=== PATIENT | male | born 1955 | race Hispanic/Latino ===

== ENCOUNTER 2017-06-15 13:21 | Observation (INO) | payer OTHER ==
[2017-06-15 13:47] VITALS: RESP 18
[2017-06-15] MEDS ORDERED: Sodium Chloride 0.9% 500 ML IV STA (14:27)
[2017-06-15] MEDS ORDERED: Iohexol 240 (50 ml) ONE (14:30)
--- NOTE | 2017-06-15 14:37 | ED PDOC ---
Arrival/HPI - General Chief Complaint: Abdominal Pain Time Seen by Provider: 06/15/17 14:26 Historian: Patient - History of Present Illness Narrative History of Present Illness (Text): 06/15/17 14:30 Ken Correa is a 62 year old male who presents to the emergency department complaining of abdominal pain since yesterday evening. States he had 3 episodes of non-bloody, watery diarrhea yesterday and had 1 episode of loose stool today morning. He also had subjective fever today morning. He was evaluated by PMD, , today morning and was advised to present to the emergency department for further evaluation. Denies any nausea or vomiting. Patient also had 1 isolated episode of chills 2 nights ago, which has resolved. Patient also states he experienced some lower back pain, which he states is chronic. Notes he worked-out today, mostly stretching and lifting light weights. No recent travel, No recent antibiotics. Denies any chest pain, shortness of breath, urinary symptoms, or any other complaints at this time. Time/Duration: Other (yesterday ) Symptom Onset: Gradual Severity Level: Mild Activities at Onset: Light Past Medical History - Provider Review Nursing Documentation Reviewed: Yes - Cardiac Hx Cardiac Disorders: Yes Hx Hypertension: Yes - Pulmonary Hx Respiratory Disorders: No - Neurological Hx Neurological Disorder: No - HEENT Hx HEENT Disorder: No - Renal Hx Renal Disorder: No - Endocrine/Metabolic Hx Endocrine Disorders: No - Hematological/Oncological Hx Blood Disorders: No - Integumentary Hx Dermatological Disorder: No - Musculoskeletal/Rheumatological Hx Musculoskeletal Disorders: No - Gastrointestinal Hx Gastrointestinal Disorders: No - Genitourinary/Gynecological Hx Genitourinary Disorders: No - Psychiatric Hx Psychophysiologic Disorder: No Hx Substance Use: No - Surgical History Other/Comment: right ear surgery Family/Social History - Physician Review Nursing Documentation Reviewed: Yes Family/Social History: No Known Family HX Smoking Status: Never Smoked Hx Alcohol Use: Yes Frequency of alcohol use: Socially Hx Substance Use: No Allergies/Home Meds Allergies/Adverse Reactions: Allergies No Known Allergies Allergy (Verified 06/15/17 13:47) Home Medications: Home Meds Medication Instructions Recorded Confirmed Amlodipine/Valsartan/Hcthiazid 1 PO DAILY 06/15/17 [[id number] 10-160-25 mg] Review of Systems - Review of Systems Constitutional: Fevers. absent: Fatigue Respiratory: Normal. absent: SOB, Cough, Sputum Cardiovascular: absent: Chest Pain, Palpitations Gastrointestinal: Abdominal Pain, Diarrhea. absent: Nausea, Vomiting Genitourinary Male: absent: Dysuria Neurological: absent: Headache, Dizziness Hemo/Lymphatic: absent: Easy Bleeding Psychiatric: absent: Depression Physical Exam - Physical Exam Narrative Physical Exam (Text): Head: Atraumatic. Normocephalic. Eyes: PERRL. EOMI. Conjunctivae are not pale. ENT: Mucous membranes are moist and intact. Oropharynx is clear and symmetric. Neck: Supple. Full ROM. No JVD. No lymphadenopathy. Cardiovascular: Regular rate. Regular rhythm. No murmurs, rubs, or gallops. Distal pulses are 2+ and symmetric. Pulmonary/Chest: No evidence of respiratory distress. Clear to auscultation bilaterally. No wheezing, rales or rhonchi. Abdominal: Soft and non-distended. No rebound, guarding, or rigidity. No organomegaly. Good bowel sounds. Moderate periumbilical tenderness to deep palpation. Normoactive bowel sounds. Back: No CVA tenderness. No midline tenderness. Extremities: No edema. No cyanosis. No clubbing. Full range of motion in all extremities. No calf tenderness. Skin: Skin is warm and dry. No petechiae. No purpura. Neurological: Alert, awake, and oriented. Motor and sensory exam intact. NO meningeal signs. Normal speech. Steady gait. Psychiatric: Good eye contact. Normal interaction, affect, and behavior. 06/16/17 20:13 Vital Signs Reviewed: Yes Vital Signs Temp Pulse Resp BP Pulse Ox 06/15/17 17:26 75 18 140/69 96 06/15/17 16:14 79 18 142/78 95 06/15/17 15:19 100.5 F H 87 18 146/83 95 06/15/17 13:41 102.2 F H 95 H 18 129/79 95 Temperature: Febrile Blood Pressure: Normal Pulse: Regular Respiratory Rate: Normal Appearance: Positive for: Well-Appearing, Non-Toxic, Comfortable Pain Distress: None Mental Status: Positive for: Alert and Oriented X 3 Medical Decision Making ED Course and Treatment: 06/15/17 14:38 Impression: A 62 year old male who presents to the emergency department complaining of abdominal pain and fever. Differential Diagnosis included but are not limited to: colitis vs. appendicitis vs. gastroenteritis Plan: -- CT abdomen pelvis -- EKG -- Labs, cardiac enzymes -- Pepcid -- IV Fluids -- Toradol -- Reassess and disposition Progress Notes: Patient placed in observation for serial abdominal exams and ct abdomen/pelvis. He is febrile but does not appear to be septic, is nontoxic appearing. Denies cough. Denies urinary symptoms. Denies chest pain. No rash or lesions. No joint pain or swelling. 06/16/17 20:14 - Medication Orders Current Medication Orders: Discontinued Medications Famotidine (Pepcid) 20 mg IVP STAT STA Stop: 06/15/17 14:28 Last Admin: 06/15/17 14:57 Dose: 20 mg Sodium Chloride (Sodium Chloride 0.9%) 500 mls @ 1,000 mls/hr IV .Q30M STA Stop: 06/15/17 14:56 Last Admin: 06/15/17 14:57 Dose: 1,000 mls/hr Iohexol (Omnipaque 240 (50 Ml)) Confirm Administered Dose 50 ml .ROUTE .STK-MED ONE Stop: 06/15/17 14:31 Iohexol (Omnipaque 350 100 Ml) Confirm Administered Dose 350 mg .ROUTE .STK-MED ONE Stop: 06/15/17 16:33 Ketorolac Tromethamine (Toradol) 30 mg IVP ONCE ONE Stop: 06/15/17 14:28 Last Admin: 06/15/17 14:57 Dose: 30 mg ED OBSERVATION Discharge: Yes Date of observation admission: 06/15/17 Time of observation admission: 13:40 - Observation admission statement Patient is being placed in observation because:: Abdominal pain - Goals of Observation Goals of observation are:: Pending CT abdomen pelvis, labs, reevaluation and disposition. - Progress Note Progress Note: 06/15/17 15:40 Patient is resting comfortably with no acute stress. Stable vitals. 06/15/17 17:40 Patient is resting with stable vitals. No new complaints. Pending CT read. 06/15/17 17:55 Re-exam. Pain free. No nausea or vomiting. No chest pain or sob. CT reading reviewed with patient. As no pain, nontoxic appearing, stressed need for close follow-up with last model department supervisor and PMD. Patient will be discharged with antibiotics. - Scribe Statement The provider has reviewed the documentation as recorded by the Thea Mccloud Provider Attestation: Provider Scribe Attestation: All medical record entries made by the Thea were at my direction and personally dictated by me. I have reviewed the chart and agree that the record accurately reflects my personal performance of the history, physical exam, medical decision making, and the department course for this patient. I have also personally directed, reviewed, and agree with the discharge instructions and disposition. Disposition/Present on Arrival - Present on Arrival Any Indicators Present on Arrival: No History of DVT/PE: No History of Uncontrolled Diabetes: No Urinary Catheter: No History of Decub. Ulcer: No History Surgical Site Infection Following: None - Disposition Have Diagnosis and Disposition been Completed?: Yes Diagnosis: Colitis, Abdominal pain Disposition: HOME/ ROUTINE Disposition Time: 18:00 Patient Plan: Discharge Condition: GOOD
[2017-06-15 14:58] LABS: BASO # 0.01 K/mm3 (0.0-2.0); BASO % 0.1 % (0.0-3.0); EOS % 0.1 % (1.5-5.0); GRAN # 6.59 (1.4-6.5); GRAN % 83.3 % (50.0-68.0); HEMOGLOBIN 13.1 gm/dL (14.0-18.0); LYMPH # 0.8 (1.2-3.4); LYMPH % 10.2 % (22.0-35.0); MEAN CELL VOLUME 72.9 fL (80.0-105.0); MEAN CORPUSCULAR HEMOGLOBIN 24.2 pg (25.0-35.0); MEAN CORPUSCULAR HGB CONC 33.2 g/dl (31.0-37.0); MEAN PLATELET VOLUME 10.2 fl (7.0-11.0); MONO # 0.5 (0.1-0.6); MONO % 6.3 % (1.0-6.0); PLATELET COUNT 204 10^3/uL (120.0-450.0); RBC 5.42 10^6/uL (3.5-6.1); WHITE BLOOD COUNT 7.9 10^3/ul (4.5-11.0)
[2017-06-15 15:14] LABS: ALB/GLOB RATIO 1.3 (1.1-1.8); ALBUMIN 4.1 g/dL (3.0-4.8); ALT/SGPT 33 U/L (7-56); AST/SGOT 35 U/L (15-59); BLOOD UREA NITROGEN 23 mg/dL (7-21); CALCIUM 9.4 mg/dL (8.4-10.5); GFR AFRICAN-AMERICAN > 60; GFR NON-AFRICAN AMERICAN > 60
[2017-06-15 15:20] VITALS: TEMP 100.5
[2017-06-15 15:24] LABS: INR 1.06 (0.93-1.08); PARTIAL THROMBOPLASTIN TIME 30.3 Seconds (23.7-30.8); PROTHROMBIN TIME 11.5 Seconds (9.9-11.8)
[2017-06-15 15:31] LABS: TROPONIN I 0.01 ng/mL
[2017-06-15] MEDS ORDERED: Iohexol 350 MG/100 ML VIAL ONE (16:32)
[2017-06-15 17:27] VITALS: BP 140/69; PULSE 75; O2SAT 96
--- NOTE | 2017-06-15 17:31 | CT ---
PROCEDURE: CT Abdomen and Pelvis with oral and IV contrast. HISTORY: r/o colitis COMPARISON: Pancreatic protocol CT performed 06/14/16 TECHNIQUE: Contiguous axial images of the abdomen and pelvis. Oral and IV contrast was administered. Coronal and Sagittal reformats generated and reviewed. Contrast dose: 100 mL Omnipaque 350 Radiation dose: Total exam DLP = 1035.49 mGy-cm. This CT exam was performed using one or more of the following dose reduction techniques: Automated exposure control, adjustment of the mA and/or kV according to patient size, and/or use of iterative reconstruction technique. FINDINGS: LOWER THORAX: The lung bases appear clear. Visualized portions of the heart appear within normal limits of size. There is no visible pleural effusion or pneumothorax. LIVER: Hypodensity adjacent to the falciform ligament, presumably focal fat. Hepatomegaly. GALLBLADDER AND BILE DUCTS: Unremarkable. PANCREAS: Unremarkable. No mass. No ductal dilatation. SPLEEN: Splenomegaly. ADRENALS: Unremarkable. KIDNEYS AND URETERS: The kidneys enhance symmetrically. No hydronephrosis or obstructing renal calculus. BLADDER: The urinary bladder appears unremarkable. REPRODUCTIVE: Unremarkable. APPENDIX: Unremarkable. BOWEL: The stomach is nondistended. The bowel loops appear within normal limits of caliber without evidence of intestinal obstruction. Scattered diverticulosis. Marked wall thickening of the right colon, proximal right transverse colon, and terminal ileum worrisome for colitis/ileitis. PERITONEUM: No significant free fluid. No definite free air. LYMPH NODES: No bulky lymphadenopathy identified. VASCULATURE: Atherosclerotic calcifications of the aorta. BONES: Degenerative changes of the spine. OTHER FINDINGS: None. IMPRESSION: Marked wall thickening of the right colon, proximal right transverse colon, and terminal ileum worrisome for colitis/ileitis. Correlate clinically. Scattered diverticulosis. Hepatomegaly. Evidence of fatty infiltration adjacent to the falciform ligament. Splenomegaly.
--- NOTE | 2017-06-15 20:44 | CARD ---
APPROVED REPORT EKG Measurement Heart [id number] [id number] <Conclusion> Normal sinus rhythm Possible Left atrial enlargement Borderline ECG
== END 2017-06-15 17:56 | disposition home or self-care (01) ==
LOC: ED 13:21 → EROBSV 13:40
PROVIDERS: ADMIT Emergency Medicine; ATTEND Emergency Medicine
DX: K52.9 Noninfective gastroenteritis and colitis, unspecified (principal); I10 Essential (primary) hypertension
CPT/HCPCS: 74177; 80053; 82550; 83615; 84484; 85025; 85610; 85730; 93005; 96374; 96375; 99284; G0378; J1885; J7040; Q9966; Q9967